=== PATIENT | female | born 1955 | race Caucasian/White ===

== ENCOUNTER → 2023-07-22 06:21 | Day surgery (SDC) | payer MEDICARE, OTHER, SELFPAY | LOC: GI 06:21 | PROVIDERS: ATTENDING PHYSICIAN Surgery | DX: Z12.11 Encounter for screening for malignant neoplasm of colon (principal); K63.5 Polyp of colon; K57.30 Diverticulosis of large intestine without perforation or abscess without bleeding | CPT/HCPCS: 45380; 88305 ==

== ENCOUNTER 2023-07-23 06:03 | Inpatient (IN) | payer MEDICARE, OTHER, SELFPAY ==
[2023-07-17 09:36] VITALS: BMI 33.3
[2023-07-17 10:30] LABS: INR 1.02; PT 13.2 Sec (11.4-14.6)
[2023-07-17 10:31] LABS: % Basophils 0.2 % (0-2); % Eosinophils 1.2 % (0-6); % Immature Granulocytes 0.7 % (0-0.5); % Lymphocytes 28.2 % (20.5-51.1); % Monocytes 6.9 % (1.7-9.3); % Neutrophils 62.8 % (42.2-75.2); APTT 25.8 Sec (23.4-35.0); Absolute Eosinophils 0.1 10^3/uL (0-0.7); Absolute Lymphocytes 1.2 10^3/uL (1.2-3.4); Absolute Monocytes 0.3 10^3/uL (0.1-0.6); Absolute Neutrophils 2.6 10^3/uL (1.4-6.5); Hematocrit 39.9 % (37.0-47.0); Hemoglobin 13.6 g/dL (12.0-16.0); Mean Corp Hgb Conc. 34.1 g/dL (33.0-37.0); Mean Corpuscular Volume 90.9 fL (81.0-99.0); Nucleated Red Blood Cells % 0 %; Platelet Count 66 10^3/uL (130-400); Red Blood Cell Count 4.39 10^6/uL (4.20-5.40); Red Cell Dist. Width 12.8 % (11.5-14.5); White Blood Cell Count 4.1 10^3/uL (4.8-10.8)
[2023-07-17 10:59] LABS: ALT (SGPT) 25 U/L (0-35); AST (SGOT) 32 U/L (14-36); Albumin 4.1 g/dl (3.5-5.0); Alkaline Phosphatase 78 U/L (38-126); Blood Urea Nitrogen 14 mg/dl (7-17); Calcium 9.5 mg/dl (8.4-10.2); Carbon Dioxide 31 mmol/L (22-30); Chloride 99 mmol/L (98-107); Estimated Creatinine Clearance 78 ml/min; Glucose 112 mg/dl (70-99); Potassium 3.9 mmol/L (3.5-5.1); Sodium 139 mmol/L (135-145); Total Bilirubin 0.7 mg/dl (0.2-1.3); eGFR > 60.00
[2023-07-17 11:06] LABS: Glycohemoglobin (HgbA1c) 6.2 % (4.0-5.6)
--- NOTE | 2023-07-21 14:50 | PTCARENOTE ---
Patients 07/17/23 Platelets 66- Aparna @ Dr. Hairston office notified
[2023-07-23] VITALS (20 sets, daily range): BP systolic 55–142; BP diastolic 53–86
[2023-07-23] MEDS: NORMOSOL-R 1000 IV (06:40)
[2023-07-23] MEDS: TYLENOL 1000 MG PO (06:52)
[2023-07-23] MEDS: NEURONTIN 600 MG PO (06:53)
[2023-07-23] MEDS: ENTEREG 12 MG PO (06:53)
--- NOTE | 2023-07-23 11:34 | W.IMMPOSTOP ---
Addendum entered and electronically signed by Eddie Self MD 07/23/23 12:02:
Patient's sister, Jazmin, updated via phone conversation.
Original Note:
Surgical Immed Post Op Note
-
Primary Surgeon: Erick Self MD
Assisting Surgeon: Satish Wood [employer] SENIOR OFFICER; DEXTER Berkowitz
Pre-op Diagnosis: sigmoid diverticulitis
Post-op Diagnosis: same
Procedure Performed: 1) robotic sigmoidectomy 2) flexible sigmoidoscopy
Anesthesia Type: general plus local
Specimen / Cultures: sigmoid colon
Estimated Blood Loss: 250 cc
Complications: no immediate
Operative Findings: oozy during operation (likely due to ITP/thrombocytopenia)--transfused a single donor unit of platelets for this
#19 Shaq in pelvis.
Vaughn, ureteral stents, ureteral ICG by Dr. Ricci of urology. R stent removed at end of case.
Will send to med surg.
[2023-07-23] MEDS: DILAUDID 0.25 MG IV ×5 (12:22→13:39)
[2023-07-23 12:47] LABS: % Basophils 0.1 % (0-2); % Immature Granulocytes 0.7 % (0-0.5); % Lymphocytes 3.9 % (20.5-51.1); % Monocytes 2.3 % (1.7-9.3); Absolute Immature Granulocytes 0.1 10^3/uL (0-0.05); Absolute Lymphocytes 0.4 10^3/uL (1.2-3.4); Absolute Monocytes 0.2 10^3/uL (0.1-0.6); Absolute Neutrophils 8.6 10^3/uL (1.4-6.5); Hematocrit 36.3 % (37.0-47.0); Hemoglobin 12.4 g/dL (12.0-16.0); Mean Corp Hgb Conc. 34.2 g/dL (33.0-37.0); Mean Corpuscular Hgb 30.6 pg (27.0-31.0); Mean Corpuscular Volume 89.6 fL (81.0-99.0); Mean Platelet Volume 12.5 fL (7.4-10.4); Nucleated Red Blood Cells % 0 %; Platelet Count 64 10^3/uL (130-400); Red Blood Cell Count 4.05 10^6/uL (4.20-5.40); Red Cell Dist. Width 12.9 % (11.5-14.5); White Blood Cell Count 9.2 10^3/uL (4.8-10.8)
[2023-07-23 12:58] LABS: Blood Urea Nitrogen 10 mg/dl (7-17); Calcium 7.4 mg/dl (8.4-10.2); Carbon Dioxide 22 mmol/L (22-30); Chloride 104 mmol/L (98-107); Estimated Creatinine Clearance 78 ml/min; Glucose 156 mg/dl (70-99); Magnesium 2.1 mg/dl (1.6-2.3); Potassium 3.6 mmol/L (3.5-5.1); Sodium 135 mmol/L (135-145); eGFR > 60.00
[2023-07-23] MEDS: D5LR 1000 IV (13:45)
--- NOTE | 2023-07-23 15:40 | PTCARENOTE ---
Pt received from the PACU via bed. Transport was w/o incident. Pt is AAOx3, HRR, lungs are clear, resp. are easy. VSS, Pt is afebrile. Pt with 4 Lap sites and one transverse inc. low abd, well approximated with dermabond. no drainage noted. Pt c/o
pain and mild nausea. Pt medicated as ordered for pain and nausea. Pt instructed on plan of care, Pt and family voiced understanding of instructions. Call boss is within reach.
[2023-07-23] MEDS: MORPHINE SULFATE 4 MG IV ×2 (16:19→21:02)
[2023-07-23] MEDS: ZOFRAN 4 MG IV (16:19)
[2023-07-23] MEDS: NEURONTIN 300 MG PO ×2 (16:20→23:06)
[2023-07-23] MEDS: TYLENOL 650 MG PO ×2 (16:20→20:55)
[2023-07-23] MEDS: FLUSH (NSS) 2 FLUSH IV (21:03)
[2023-07-23] MEDS: PROZAC 10 MG PO (23:06)
[2023-07-23] MEDS: SYNTHROID 50 MCG PO (23:06)
[2023-07-24] MEDS: D5LR 1000 IV ×3 (00:23→18:04)
[2023-07-24] MEDS: TYLENOL 650 MG PO ×6 (00:24→20:08)
[2023-07-24 03:15] VITALS: BP 104/55
[2023-07-24] MEDS: MORPHINE SULFATE 4 MG IV (04:30)
[2023-07-24] MEDS: FLUSH (NSS) 2 FLUSH IV (04:31)
[2023-07-24 05:45] VITALS: BMI 32.9
[2023-07-24 06:00] VITALS: BMI 33.1
[2023-07-24 06:34] LABS: % Basophils 0.1 % (0-2); % Immature Granulocytes 0.2 % (0-0.5); % Lymphocytes 6.1 % (20.5-51.1); % Monocytes 8.1 % (1.7-9.3); % Neutrophils 85.5 % (42.2-75.2); Absolute Lymphocytes 0.5 10^3/uL (1.2-3.4); Absolute Monocytes 0.7 10^3/uL (0.1-0.6); Absolute Neutrophils 7.3 10^3/uL (1.4-6.5); Hematocrit 33.1 % (37.0-47.0); Hemoglobin 11.2 g/dL (12.0-16.0); Mean Corp Hgb Conc. 33.8 g/dL (33.0-37.0); Mean Corpuscular Hgb 30.7 pg (27.0-31.0); Mean Corpuscular Volume 90.7 fL (81.0-99.0); Mean Platelet Volume 13.7 fL (7.4-10.4); Nucleated Red Blood Cells % 0 %; Platelet Count 67 10^3/uL (130-400); Red Blood Cell Count 3.65 10^6/uL (4.20-5.40); White Blood Cell Count 8.5 10^3/uL (4.8-10.8)
[2023-07-24 06:58] LABS: Blood Urea Nitrogen 8 mg/dl (7-17); Calcium 7.9 mg/dl (8.4-10.2); Carbon Dioxide 28 mmol/L (22-30); Chloride 101 mmol/L (98-107); Estimated Creatinine Clearance 68 ml/min; Glucose 158 mg/dl (70-99); Magnesium 2.3 mg/dl (1.6-2.3); Potassium 3.7 mmol/L (3.5-5.1); Sodium 138 mmol/L (135-145); eGFR > 60.00
[2023-07-24 07:10] VITALS: BP 100/53
[2023-07-24 07:45] LABS: Hepatitis C Antibody Negative (Negative)
--- NOTE | 2023-07-24 08:37 | W.PN.CRS1 ---
Today's Communication / Plan
-
Clears
Lovenox
DC Vaughn, stent removed
Change morphine to Dilaudid
Assessment/Plan
-
POD#1 robotic sigmoidectomy/flexible sigmoidoscopy
1. Vital signs are normal.
2. Hemoglobin is 11.2. Platelet is 67 which within her normal range. Monitor.
3. Stent removed at bedside. Urine output adequate. DC Vaughn.
4. Clear liquid diet.
5. Out of bed as tolerated.
6. Continue EDWIN drain until discharge.
7. Pain control: Tylenol 600 every 4 hours while awake, will change morphine IV as needed to Dilaudid IV as needed.
8. OR pathology pending.
9. Will start Lovenox today for DVT prophylaxis. Teds and SCDs in place.
Subjective Data
Procedure
07/23/2023-1) robotic sigmoidectomy 2) flexible sigmoidoscopy
Subjective Data
Date of Service: July 24, 2023
Patient states she has a lot of pain. She has flatus but no bowel movements. She is having some scant bloody discharge from her rectal area. She has no nausea or vomiting.
Objective Data
-
Vital Signs
Temp Pulse Resp BP Pulse Ox
97.8 F 80 17 100/53 93
07/24/23 07:10 07/24/23 07:10 07/24/23 07:10 07/24/23 07:10 07/24/23 07:10
Intake & Output
07/23/23 07/24/23 07/25/23
06:59 06:59 06:59
Intake Total 1820 / 1820
Output Total 2160 / 2160
Balance -340 / -340
Intake:
Oral fluids 120 / 120
IV fluids (Total) 500 / 500
Normosol 500 / 500
IV piggybacks 1200 / 1200
Output:
Drain Output (Total) 110 / 110
Right Middle Jonathan-Bhatt A 110 / 110
Urine, Vaughn 2049
Lab Results
07/24/23 04:23
07/24/23 04:23
Physical Exam
-
General: No Acute Distress and AOx3
Abdomen: Soft, Non Distended and Tender (Around incision sites.)
Skin: Warm and Dry
Incision: Clear, Dry, Intact
[2023-07-24] MEDS: DILAUDID 0.5 MG IV ×2 (09:25→15:15)
[2023-07-24] MEDS: ENTEREG 12 MG PO ×2 (09:26→20:08)
[2023-07-24] MEDS: PROTONIX 40 MG PO (09:26)
[2023-07-24] MEDS: NEURONTIN 300 MG PO ×3 (09:26→21:46)
--- NOTE | 2023-07-24 10:27 | CM ---
Chart reviewed. Spoke with pt at bedside
POD 1 -Robotic sigmoidectomy with bilateral ureteral stents
Pt lives in basement apartment within daughter's home- bedroom/bathroom/kitchen on one floor
Daughter lives in home
Independent, driving, cooking prior to hospitalization
DME - rolling walker
PCP - Dr Schrader
Pharm - [facility]
Will have ride at d/c
CM following for d/c needs
Plan - Anticipate home when medically stable - needs tbd
[2023-07-24 11:18] VITALS: BP 112/58
[2023-07-24 15:31] VITALS: BP 105/62
[2023-07-24] MEDS: LOVENOX 40 MG SC (17:56)
[2023-07-24] MEDS: DILAUDID 1 MG IV (20:08)
[2023-07-24] MEDS: PROZAC 10 MG PO (21:46)
[2023-07-24] MEDS: SYNTHROID 50 MCG PO (21:46)
[2023-07-24 22:39] VITALS: BP 102/49
[2023-07-25] MEDS: TYLENOL PO
[2023-07-25] MEDS: TYLENOL 650 MG PO ×5 (04:32→20:20)
[2023-07-25] MEDS: DILAUDID 1 MG IV ×2 (04:32→08:52)
[2023-07-25] MEDS: D5LR 1000 IV ×2 (04:35→13:18)
[2023-07-25 06:00] VITALS: BMI 33.1
[2023-07-25 07:14] LABS: % Basophils 0.3 % (0-2); % Eosinophils 3.2 % (0-6); % Immature Granulocytes 0.4 % (0-0.5); % Lymphocytes 14.8 % (20.5-51.1); % Monocytes 6.5 % (1.7-9.3); % Neutrophils 74.8 % (42.2-75.2); Absolute Eosinophils 0.2 10^3/uL (0-0.7); Absolute Lymphocytes 1.1 10^3/uL (1.2-3.4); Absolute Monocytes 0.5 10^3/uL (0.1-0.6); Absolute Neutrophils 5.6 10^3/uL (1.4-6.5); Hemoglobin 10.8 g/dL (12.0-16.0); Mean Corp Hgb Conc. 32.7 g/dL (33.0-37.0); Mean Corpuscular Hgb 30.1 pg (27.0-31.0); Mean Corpuscular Volume 91.9 fL (81.0-99.0); Mean Platelet Volume 13.4 fL (7.4-10.4); Nucleated Red Blood Cells % 0 %; Platelet Count 67 10^3/uL (130-400); Red Blood Cell Count 3.59 10^6/uL (4.20-5.40); Red Cell Dist. Width 13.2 % (11.5-14.5); White Blood Cell Count 7.4 10^3/uL (4.8-10.8)
[2023-07-25 07:21] LABS: Blood Urea Nitrogen 4 mg/dl (7-17); Carbon Dioxide 28 mmol/L (22-30); Chloride 104 mmol/L (98-107); Estimated Creatinine Clearance 90 ml/min; Glucose 124 mg/dl (70-99); Potassium 3.5 mmol/L (3.5-5.1); Sodium 138 mmol/L (135-145); eGFR > 60.00
[2023-07-25 07:45] VITALS: BP 92/62
[2023-07-25] MEDS: NEURONTIN 300 MG PO ×3 (08:49→21:23)
[2023-07-25] MEDS: ENTEREG PO (08:49)
[2023-07-25] MEDS: PROTONIX 40 MG PO (08:49)
--- NOTE | 2023-07-25 10:51 | W.PN.GS2 ---
Addendum entered and electronically signed by Shawn Lawson MD 07/25/23 11:04:
Patient seen and examined with nurse practitioner.
Passing flatus and loose stools. Postop incisional pain controlled. No nausea. Tolerating clears.
AFVSS
ABD: Soft, nondistended, mild tenderness. Incision sites with glue dressings.
EDWIN with light serosanguineous fluid in bulb
A/P: POD #2 RAL sigmoidectomy
Full liquid diet with supplements; probable low residue tomorrow a.m.
Stop Entereg
EDWIN will be removed upon discharge
Original Note:
Today's Communication / Plan
-
FLD
OOB/Ambulate
Assessment / Plan
-
67-year-old female with PMH of ITP and recurrent diverticulitis
POD #2 robotic sigmoidectomy with bilateral ureteral stent placement by urology
Stents out and marquez now out, Voiding.
Passing flatus/stools
AFVSS
Labs stable
� Advance to full liquids with Ensure
� Pain control: Will switch to IV Dilaudid as needed, continue Tylenol and Entereg
� Analgesics with scheduled tylenol and prn oxycodone/dilaudid. Hold NSAIDS given thrombocytopenia
� DVT ppx with SCD's, lovenox qpm
� OOB/IS
- D/C entereg
- Continue IVF
- EDWIN drain until d/c
Subjective Data
-
Date of Service: July 25, 2023
Patient seen and examined at bedside with Dr. Lawson. Minimal nausea but no vomiting. Passing stools and flatus. Reports Diarrhea. Pain/soreness to abd. Voiding since marquez catheter removal. Declined heparin sq last night d/t bleeding at IV site.
Objective Data
-
Intake and Output
07/24/23 07/25/23 07/26/23
06:59 06:59 06:59
Intake Total 1820 / 1820 2340 / 2340
Output Total 2160 / 2160 2185 / 2185 20 / 20
Balance -340 / -340 155 / 155 -20 / -20
Intake:
Oral fluids 120 / 120 1140 / 1140
IV fluids (Total) 500 / 500 1200 / 1200
Normosol 500 / 500
IV piggybacks 1200 / 1200
Output:
Drain Output (Total) 110 / 110 85 / 85 20 / 20
Right Middle Jonathan-Bhatt A 110 / 110 85 / 85 20 / 20
Urine, Marquez 2049 / 2049 650 / 650
Urine, Voided 1450 / 1450
Vital Signs
Temp Pulse Resp BP Pulse Ox
98.6 F 92 16 92/62 97
07/25/23 07:45 07/25/23 07:45 07/25/23 07:45 07/25/23 07:45 07/25/23 07:45
Lab Results
07/25/23 05:47
07/25/23 05:47
Calcium 8.0 mg/dl (8.4-10.2) L 07/25/23 05:47
Magnesium 2.3 mg/dl (1.6-2.3) 07/24/23 04:23
Total Bilirubin 0.7 mg/dl (0.2-1.3) 07/17/23 09:13
AST 32 U/L (14-36) 07/17/23 09:13
ALT 25 U/L (0-35) 07/17/23 09:13
Alkaline Phosphatase 78 U/L (38-126) 07/17/23 09:13
Total Protein 7.0 g/dl (6.3-8.2) 07/17/23 09:13
Albumin 4.1 g/dl (3.5-5.0) 07/17/23 09:13
Physical Exam
-
NAD
ABD soft, expected tenderness, chlorine cell tender, minimal distention
Incisions clear,dry, intact, EDWIN with SSF
[2023-07-25 15:30] VITALS: BP 104/63
[2023-07-25] MEDS: ZOFRAN 4 MG IV (16:28)
[2023-07-25] MEDS: DILAUDID 0.5 MG IV ×2 (16:31→21:30)
[2023-07-25] MEDS: LOVENOX 40 MG SC (17:54)
[2023-07-25] MEDS: PROZAC 10 MG PO (21:23)
[2023-07-25] MEDS: SYNTHROID 50 MCG PO (21:23)
[2023-07-25 23:20] VITALS: BP 103/65
[2023-07-26] MEDS: TYLENOL PO ×2 (00:35→04:44)
[2023-07-26] MEDS: D5LR 1000 IV (02:22)
[2023-07-26 06:00] VITALS: BMI 33.1
[2023-07-26 06:10] LABS: Hematocrit 31.7 % (37.0-47.0); Hemoglobin 10.5 g/dL (12.0-16.0); Mean Corp Hgb Conc. 33.1 g/dL (33.0-37.0); Mean Corpuscular Hgb 30.2 pg (27.0-31.0); Mean Corpuscular Volume 91.1 fL (81.0-99.0); Mean Platelet Volume 12.9 fL (7.4-10.4); Platelet Count 77 10^3/uL (130-400); Red Blood Cell Count 3.48 10^6/uL (4.20-5.40); Red Cell Dist. Width 13.2 % (11.5-14.5); White Blood Cell Count 6.3 10^3/uL (4.8-10.8)
[2023-07-26 06:22] LABS: Blood Urea Nitrogen 4 mg/dl (7-17); Carbon Dioxide 29 mmol/L (22-30); Chloride 105 mmol/L (98-107); Estimated Creatinine Clearance 77 ml/min; Glucose 127 mg/dl (70-99); Potassium 3.4 mmol/L (3.5-5.1); Sodium 136 mmol/L (135-145); eGFR > 60.00
[2023-07-26 07:17] VITALS: BP 117/70
[2023-07-26] MEDS: PROTONIX 40 MG PO (07:55)
[2023-07-26] MEDS: TYLENOL 650 MG PO ×5 (07:55→23:12)
[2023-07-26] MEDS: DILAUDID 0.5 MG IV (07:55)
[2023-07-26] MEDS: NEURONTIN 300 MG PO ×3 (07:55→21:33)
[2023-07-26] MEDS: ZOFRAN 4 MG IV (07:58)
[2023-07-26] MEDS: KCL 270 MEQ IV (08:59)
--- NOTE | 2023-07-26 09:46 | W.PN.GS2 ---
Addendum entered and electronically signed by Shawn Lawson MD 07/26/23 10:02:
pt seen and examined with DRY ICE MAKER
complains of incisional pain but fully relieved after pain meds
reena PO
+fl and BMs
AFVSS
ABD: soft, ND, mild TTP no R/R/G
incisions with glue
EDWIN with light SSF
A/P: POD#3
LR diet as tolerated today
pain control
follow EDWIN
Original Note:
Today's Communication / Plan
-
LRD as tolerated
Pain management
Assessment / Plan
-
67-year-old female with PMH of ITP and recurrent diverticulitis
POD #3 robotic sigmoidectomy with bilateral ureteral stent placement by urology
Stents out and marquez now out, Voiding.
Passing flatus/stools
AFVSS
Labs stable
� Advance to low residue diet as tolerated
� Analgesics with scheduled tylenol and prn oxycodone/dilaudid. Hold NSAIDS given thrombocytopenia
� DVT ppx with SCD's, lovenox qpm
� OOB/IS
- D/C IVF
- EDWIN drain until d/c
Subjective Data
-
Date of Service: July 26, 2023
Patient seen and examined at bedside with Dr. Lawson. Notes that when she has pain it is horrible but the medication relieves it very well. She had some nausea earlier this morning. Denies vomiting. Passing flatus and stools and overall tolerating
diet although sticking to eating small amounts.
Objective Data
-
Intake and Output
07/25/23 07/26/23 07/27/23
06:59 06:59 06:59
Intake Total 2340 / 2340 2099 / 2099
Output Total 2185 / 2185 135 / 135
Balance 155 / 155 1965 / 1965
Intake:
Oral fluids 1140 / 1140 1140 / 1140
IV fluids (Total) 1200 / 1200 960 / 960
Output:
Drain Output (Total) 135 / 135
Right Middle Jonathan-Bhatt A 135 / 135
Urine, Marquez 650 / 650
Urine, Voided 1450 / 1450
Other:
Number of approximated MODERATE 4
amounts of urine
Number of unmeasured liquid
stools
Rectum 4
Vital Signs
Temp Pulse Resp BP Pulse Ox
98.5 F 112 16 117/70 97
07/26/23 07:17 07/26/23 07:17 07/26/23 07:17 07/26/23 07:17 07/26/23 07:17
Lab Results
07/26/23 05:23
07/26/23 05:23
Calcium 8.0 mg/dl (8.4-10.2) L 07/26/23 05:23
Magnesium 2.3 mg/dl (1.6-2.3) 07/24/23 04:23
Total Bilirubin 0.7 mg/dl (0.2-1.3) 07/17/23 09:13
AST 32 U/L (14-36) 07/17/23 09:13
ALT 25 U/L (0-35) 07/17/23 09:13
Alkaline Phosphatase 78 U/L (38-126) 07/17/23 09:13
Total Protein 7.0 g/dl (6.3-8.2) 07/17/23 09:13
Albumin 4.1 g/dl (3.5-5.0) 07/17/23 09:13
Physical Exam
-
NAD
ABD soft, expected tenderness, swimming pool attendant, minimal distention
Incisions clear,dry, intact glue. Some bruising to lower abdominal incision, EDWIN with SSF
[2023-07-26 14:51] VITALS: BP 105/56
[2023-07-26] MEDS: DILAUDID IV (18:10)
[2023-07-26] MEDS: DILAUDID 1 MG IV (18:14)
[2023-07-26] MEDS: LOVENOX 40 MG SC (18:40)
[2023-07-26] MEDS: PROZAC 10 MG PO (21:33)
[2023-07-26] MEDS: SYNTHROID 50 MCG PO (21:33)
[2023-07-27 00:11] VITALS: BP 130/84
[2023-07-27] MEDS: TYLENOL 650 MG PO ×2 (05:14→08:32)
[2023-07-27 06:24] LABS: Hematocrit 33.5 % (37.0-47.0); Hemoglobin 11.1 g/dL (12.0-16.0); Mean Corp Hgb Conc. 33.1 g/dL (33.0-37.0); Mean Corpuscular Hgb 30.5 pg (27.0-31.0); Mean Platelet Volume 13.1 fL (7.4-10.4); Platelet Count 98 10^3/uL (130-400); Red Blood Cell Count 3.64 10^6/uL (4.20-5.40); White Blood Cell Count 4.9 10^3/uL (4.8-10.8)
[2023-07-27 06:57] LABS: Blood Urea Nitrogen 10 mg/dl (7-17); Calcium 8.4 mg/dl (8.4-10.2); Carbon Dioxide 28 mmol/L (22-30); Chloride 100 mmol/L (98-107); Estimated Creatinine Clearance 77 ml/min; Glucose 109 mg/dl (70-99); Magnesium 1.8 mg/dl (1.6-2.3); Potassium 3.6 mmol/L (3.5-5.1); Sodium 135 mmol/L (135-145); eGFR > 60.00
[2023-07-27 07:03] VITALS: BP 116/67
[2023-07-27] MEDS: PROTONIX 40 MG PO (08:32)
[2023-07-27] MEDS: NEURONTIN 300 MG PO (08:32)
--- NOTE | 2023-07-27 08:51 | W.PN.CRS1 ---
Today's Communication / Plan
-
EDWIN drain removed
Discharge
Assessment/Plan
-
POD#4 robotic sigmoidectomy/flexible sigmoidoscopy
1.� Vital signs are normal.
2.� Hemoglobin is 11.1.� Platelet is 98 which is within her normal range.
3.� EDWIN drain removed at bedside.
4.� Low residue diet.
5.� Out of bed as tolerated.
6.� OR pathology pending.
7.� Lovenox for DVT prophylaxis.� Teds and SCDs in place.
8. Okay for discharge today. Follow-up with Dr. Self in 2 weeks. OR pathology pending. All discharge instructions discussed with patient including medication tibials and follow-up. All questions answered.
Subjective Data
Procedure
07/23/2023-1) robotic sigmoidectomy 2) flexible sigmoidoscopy
Subjective Data
Date of Service: July 27, 2023
Right patient states she has some pain but is controlled. It is around the drain site. She is having bowel movements. She is tolerating a low residue diet. She has been out of bed.
Objective Data
-
Vital Signs
Temp Pulse Resp BP Pulse Ox
98.1 F 82 18 116/67 96
07/27/23 07:03 07/27/23 07:03 07/27/23 07:03 07/27/23 07:03 07/27/23 07:03
Intake & Output
07/26/23 07/27/23 07/28/23
06:59 06:59 06:59
Intake Total 2099 / 2099 1400 / 1400
Output Total 135 / 135 70 / 70
Balance 1967 / 1964 1330 / 1330
Intake:
Oral fluids 1140 / 1140 1400 / 1400
IV fluids (Total) 960 / 960
Output:
Drain Output (Total) 135 / 135 70 / 70
Right Middle Jonathan-Bhatt A 135 / 135 70 / 70
Other:
Number of approximated SMALL 5
amounts of urine
Number of approximated MODERATE 4 2
amounts of urine
Number of approximated LARGE 1
amounts of urine
Number of unmeasured liquid
stools
Rectum 4
Lab Results
07/27/23 05:30
07/27/23 05:30
Physical Exam
-
General: No Acute Distress and AOx3
Abdomen: Soft, Non Distended and Tender (around drain site)
Skin: Warm and Dry
Incision: Clear, Dry, Intact
--- NOTE | 2023-07-27 09:06 | W.DS.TRANS ---
DC Summary - Adapted Physical Education Specialist
-
Discharge Instructions:
Discharge Diagnosis/Procedures robotic sigmoidectomy
Diet Low Residue
Activity No strenuous activity
Additional Activity No lifting over 10 pounds
Driving Restrictions Do not drive while taking narcotics
Bathing Restrictions OK to Shower
Wound Care Allow glue to naturally fall off. Do not pick
at incisions.
Instructions: Low Fiber Diet
Stand-Alone Forms:
Changes to Home Medications: Yes
Discharge Medications:
DC Medications w/original date entered in [facility]
fluoxetine 10 mg capsule 10 mg PO HS Mental Health/Anxiety 05/25/21
levothyroxine 50 mcg tablet 50 mcg PO HS Thyroid 05/25/21
omeprazole 40 mg capsule,delayed release 40 mg PO HS Gastrointestinal issue 05/25/21
acetaminophen 500 mg tablet (Tylenol Extra Strength) 1,000 mg PO Q6HPRN PRN mild pain 04/21/23
gabapentin 300 mg capsule 300 mg PO TID Pain 04/21/23
magnesium oxide 500 mg PO DAILY Supplement 07/21/23
oxycodone 5 mg tablet 5 mg PO Q6H PRN Pain #20 tabs 07/27/23
Home Medication Changes
oxycodone 5 mg tablet 5 mg PO Q6H PRN Pain #20 tabs 07/27/23
Pending Results: Yes
Additional Pending Results:
OR pathology
--- NOTE | 2023-07-27 11:15 | PTCARENOTE ---
Discharge instructions read aloud by pt. IV removed. Pt picked up by her brother at the main lobby.
--- NOTE | 2023-07-27 12:17 | CM ---
Patient has been medically cleared for discharge to home with no additional skilled services. Son-in-law will transport home.
== END 2023-07-27 11:14 | disposition home or self-care (01) | DRG 330 ==
LOC: 2 SOUTH 06:03
PROVIDERS: Physician Assistant; Registered Nurse; Specialist; ADMITTING PHYSICIAN Surgery; FAMILY PHYSICIAN Nurse Practitioner Family
PROC: 8E0W4CZ Robotic Assisted Procedure of Trunk Region, Percutaneous Endoscopic Approach (ICD-10-PCS; 2023-07-23)
PROC: 0T788DZ Dilation of Bilateral Ureters with Intraluminal Device, Via Natural or Artificial Opening Endoscopic (ICD-10-PCS; 2023-07-23)
PROC: 0DTN4ZZ Resection of Sigmoid Colon, Percutaneous Endoscopic Approach (ICD-10-PCS; 2023-07-23)
DX: K57.32 Diverticulitis of large intestine without perforation or abscess without bleeding (principal); D69.3 Immune thrombocytopenic purpura; Z86.2 Personal history of diseases of the blood and blood-forming organs and certain disorders involving the immune mechanism; N81.10 Cystocele, unspecified
CPT/HCPCS: 88305; 88307; 36415; 80048; 80053; 83036; 83735; 85025; 85027; 85610; 85730; 86803; 86850; 86900; 86901; 86920; 93005; J1335; P9073

== ENCOUNTER 2023-08-16 12:19 | Emergency (ER) | payer MEDICARE, OTHER, SELFPAY ==
[2023-08-16 12:20] VITALS: BP 113/82; BMI 33.0
--- NOTE | 2023-08-16 12:53 | ED.GENMED ---
History of Present Illness
General
Chief Complaint: Weakness
Source: patient
Exam Limitations: none
Time Seen by Provider: 08/16/23 12:36
Nursing documentation reviewed up to this point in time: agreed with
Travel History
Have you had any contact with someone who has COVID-19?: No
Do you have any symptoms of coronavirus? Fever > 100 degrees, chills, cough, shortness of breath, sore throat, loss of taste or smell, muscle aches, or headache?: No
History of Present Illness
History of Present Illness:
Patient to ED with complaint of fatigue, nausea. States she had a bowel resection 07/23 for hx diverticulitis. No abscess or perforation identified. States she felt well for the next 2 weeks. Shortly after that time period her symptoms began.
Denies fever but reports chills. No vomiting or diarrhea. Appetite is poor. Reports sore throat and right painful ant cervical lymph node. Brought to ED by daughter for eval.
Past History
Past History
ED Past Medical History: GERD, Hypothyroidism and Other (Diverticulitis, ITP, partial small bowel obstruction related to right inguinal canal hernia August 2021)
ED Past Surgical History: Appendectomy, Brain (craniotomy (benign tumor)), and Orthopedic
Social History
Tobacco: Former smoker
Alcohol: None
Drug: None
Personal:
Living: with family
Employment: Employed
Family History
Family History: Other (Noncontributory)
Review of Systems
Review of Systems
Allergies reviewed?: Yes
All Other Systems: ROS reviewed and negative except as documented in HPI and ROS
Constitutional: Reports fatigue
EENT: Reports sore throat and other (painful right ant. cervical node)
Respiratory: Reports no symptoms
Cardiac: Reports no symptoms
ABD/GI: Reports nausea and anorexia
: Reports no symptoms
Musculoskeletal: Reports no symptoms
Skin: Reports no symptoms
Neurological: Reports weakness
Psychiatric: Reports no symptoms
Phy Exam
General Physical Exam
General Presentation: well appearing
General age: appears stated age
General Skin: warm
General Habitus: normal
General Mental: alert
ENT Exam
ENT Exam: lymphnodes (enlarged painful firm right ant. cervical lymph node), pharyngeal erythema and swallowing well
Cardiovascular Exam
Cardiovascular Exam: regular rate/rhythm and no edema
Pulmonary Exam
Pulmonary Exam: lungs clear and no respiratory distress
Gastrointestinal Exam
Gastrointestinal Exam: normal bowel sounds, non tender, soft, no organomegaly, no pulsatile mass, non distended and no cva tenderness
Musculoskeletal Exam
Musculoskeletal Exam: full ROM and neuro vasc intact
Skin Exam
Skin Exam: normal color, warm/dry and no rash
Psychiatric Exam
Psychiatric Exam: normal mood/affect
Course
Orders/Labs/Results
Orders:
Orders
08/16/23 12:51
Ondansetron Injectable [Zofran] 4 mg IV NOW STA
08/16/23 12:52
0.9% Sodium Chloride 1000 ml [Nss] 1,000 ml IV BOLUS
08/16/23 13:04
COVID-19 Antigen Urgent
Source: Nasal Swab
Complete Blood Count/With Diff Urgent
Comprehensive Metabolic Panel Urgent
Lipase Urgent
Influenza A+B Rapid Molecular Urgent
MEJIA Source: Nasal Swab
Specimen Description:
Rapid Strep Group A Urgent
MEJIA Source: Throat/Pharynx
Specimen Description:
Date Specimen was Collected: 08/16/23
Time Specimen was Collected: 13:02
08/16/23 13:55
Potassium Chloride [KCl] 40 meq PO NOW STA
08/16/23 14:30
Urinalysis Reflex To Culture Urgent
Date Specimen was Collected: 08/16/23
Time Specimen was Collected: 13:02
Urine Microscopic Reflex Cult Urgent
Urine Culture Urgent
MEJIA Source: U
Specimen Description:
Date Specimen was Collected: 08/16/23
Time Specimen was Collected: 13:02
08/16/23 15:21
Amoxicillin [Amoxil] 500 mg PO NOW STA
Abnormal Lab Results
08/16/23 08/16/23
13:04 14:30
RBC 4.15 L 10^6/uL
(4.20-5.40)
Hct 36.0 L %
(37.0-47.0)
Plt Count 121 L 10^3/uL
(130-400)
MPV 12.5 H fL
(7.4-10.4)
Abs Immat Gran (auto) 0.5 H 10^3/uL
(0-0.05)
Absolute Monos (auto) 0.9 H 10^3/uL
(0.1-0.6)
Immature Gran % 5.5 H %
(0-0.5)
Lymphocytes % 15.8 L %
(20.5-51.1)
Monocytes % 9.9 H %
(1.7-9.3)
Potassium 3.0 L mmol/L
(3.5-5.1)
Glucose 119 H mg/dl
(70-99)
Calcium 8.3 L mg/dl
(8.4-10.2)
Urine Ketones Trace A
(Negative)
Leukocyte Esterase Rfl 1+ A
(Negative)
Urine WBC (Reflex) 50-60 A /HPF
(0-5)
Urine Bacteria (Reflex) Few A
(Negative)
08/16/23 13:04
08/16/23 13:04
Vital Signs
Initial and Last Documented VS:
Initial Vital Signs
Temp Pulse Resp BP Pulse Ox
98 F 103 20 113/82 98
08/16/23 12:20 08/16/23 12:20 08/16/23 12:20 08/16/23 12:20 08/16/23 12:20
Last Documented Vital Signs
Temp Pulse Resp BP Pulse Ox
98 F 94 17 112/67 93
08/16/23 12:20 08/16/23 15:15 08/16/23 15:15 08/16/23 15:00 08/16/23 15:15
*Pulse Oximetry
Patient hypoxic: no
*Critical Care Note
Total Time (30-74mins, 75-104mins- exclusive of procedures): Not Applicable
Update Note
Update Note:
Improved after IVF and zofran. Strep pos. Amoxicillin started in dept. WIll discharge home. Given rx for zofran PRN. WIll follow up with PCP this week. Given instructions on s/s to return to ED and she is agreeable to plan.
ED Attending Note
-
Portions of this chart may have been created with voice recognition software.� Occasional wrong word or��sound alike� substitutions may have occurred due to the inherent limitations of voice recognition software.
Discharge Plan
Departure
Patient Disposition: Home (Routine Discharge)
Date of Disposition: 08/16/23
Time of Disposition: 14:51
Patient with high blood pressure during this ER visit?: No
Condition: Good
Covid-19: Not Applicable
Discharge Problem:
Weakness, Nausea, Acute streptococcal pharyngitis
Instructions: Strep Throat (DC), Generalized Weakness (DC), Lymphadenitis (DC)
Prescriptions:
New
ondansetron 4 mg tablet,disintegrating
4 mg PO Q8H PRN (Reason: nausea and vomiting) 4 Days Qty: 12 0RF
amoxicillin 500 mg capsule
500 mg PO Q12H Qty: 20 0RF
No Action
omeprazole 40 MG capsule,delayed release(DR/EC)
40 mg PO .DINNER
levothyroxine 50 MCG tablet
50 mcg PO HS
fluoxetine 10 MG capsule
10 mg PO HS
acetaminophen [Tylenol Extra Strength] 500 mg Tablet
1,000 mg PO Q6HPRN PRN (Reason: mild pain)
gabapentin 300 mg Capsule
300 mg PO BID
magnesium oxide 500 mg tablet
500 mg PO DAILY
Referrals:
Navdeep Moyer MD [Family Provider] - Follow up in 2-3 days
Interventions
Interventions:
*Risk Screen - Suicide Last Done: 08/16/23 12:20
*General Assessment Last Done: 08/16/23 12:57
*Neglect/Abuse Screening Last Done: 08/16/23 12:57
ED- Fall Risk Assessment Last Done: 08/16/23 12:58
*ED COVID-19 Vaccine History Last Done: 08/16/23 12:20
*Nursing Disposition Last Done: 08/16/23 15:32
ED- Cardiac Assessment Last Done: 08/16/23 13:00
ED- Neurological Assessment Last Done: 08/16/23 13:00
ED- Pulmonary Assessment Last Done: 08/16/23 13:00
Discharge Date and Time
Discharge Date/Time: 08/16/23 15:35
[2023-08-16 12:57] VITALS: BP 118/75
[2023-08-16] MEDS: NSS 1000 IV (13:18)
[2023-08-16] MEDS: ZOFRAN 4 MG IV (13:19)
[2023-08-16 13:30] LABS: % Basophils 0.3 % (0-2); % Eosinophils 0.6 % (0-6); % Immature Granulocytes 5.5 % (0-0.5); % Lymphocytes 15.8 % (20.5-51.1); % Monocytes 9.9 % (1.7-9.3); % Neutrophils 67.9 % (42.2-75.2); Absolute Eosinophils 0.1 10^3/uL (0-0.7); Absolute Immature Granulocytes 0.5 10^3/uL (0-0.05); Absolute Lymphocytes 1.5 10^3/uL (1.2-3.4); Absolute Monocytes 0.9 10^3/uL (0.1-0.6); Absolute Neutrophils 6.3 10^3/uL (1.4-6.5); Hemoglobin 12.2 g/dL (12.0-16.0); Mean Corp Hgb Conc. 33.9 g/dL (33.0-37.0); Mean Corpuscular Hgb 29.4 pg (27.0-31.0); Mean Corpuscular Volume 86.7 fL (81.0-99.0); Mean Platelet Volume 12.5 fL (7.4-10.4); Nucleated Red Blood Cells % 0 %; Platelet Count 121 10^3/uL (130-400); Red Blood Cell Count 4.15 10^6/uL (4.20-5.40); Red Cell Dist. Width 13.1 % (11.5-14.5); White Blood Cell Count 9.3 10^3/uL (4.8-10.8)
[2023-08-16 13:36] LABS: COVID-19 Antigen Negative (Negative)
[2023-08-16 13:43] LABS: ALT (SGPT) 26 U/L (0-35); AST (SGOT) 28 U/L (14-36); Albumin 4.3 g/dl (3.5-5.0); Alkaline Phosphatase 97 U/L (38-126); Blood Urea Nitrogen 11 mg/dl (7-17); Calcium 8.3 mg/dl (8.4-10.2); Carbon Dioxide 28 mmol/L (22-30); Chloride 100 mmol/L (98-107); Estimated Creatinine Clearance 68 ml/min; Glucose 119 mg/dl (70-99); Lipase 71 U/L (23-300); Sodium 137 mmol/L (135-145); Total Bilirubin 0.9 mg/dl (0.2-1.3); Total Protein 7.4 g/dl (6.3-8.2); eGFR > 60.00
[2023-08-16 14:00] VITALS: BP 116/76
[2023-08-16 14:57] LABS: Urine Albumin Negative (Neg - Trace); Urine Bilirubin Negative (Negative); Urine Character Clear (Clear); Urine Color Yellow; Urine Glucose Negative (Negative); Urine Ketone Trace (Negative); Urine Leukocyte 1+ (Negative); Urine Nitrite Negative (Negative); Urine Occult Blood Negative (Negative); Urine Urobilinogen Negative (Neg - 1+)
[2023-08-16 15:00] VITALS: BP 112/67
[2023-08-16] MEDS: KCL 40 MEQ PO (15:12)
[2023-08-16 15:25] LABS: Urine Squamous Cell 21-25 /LPF (Few)
[2023-08-16] MEDS: AMOXIL 500 MG PO (15:25)
[2023-08-16 15:26] LABS: Urine Bacteria Few (Negative); Urine Red Blood Cell 0-2 /HPF (0-2); Urine White Cell 50-60 /HPF (0-5)
== END 2023-08-16 15:35 | disposition home or self-care (01) ==
LOC: EMR 12:19
PROVIDERS: Nurse Practitioner; EMERGENCY PHYSICIAN Emergency Medicine; FAMILY PHYSICIAN Family Medicine
DX: J02.0 Streptococcal pharyngitis (principal); R53.1 Weakness; R11.0 Nausea; Z11.52 Encounter for screening for COVID-19
CPT/HCPCS: 99284; 96374; 96361; 80053; 81003; 81015; 83690; 85025; 87070; 87086; 87147; 87502; 87811; 87880

== ENCOUNTER → 2023-10-02 13:06 | Outpatient (REF) | payer MEDICARE, OTHER, SELFPAY | LOC: RAD 13:06 | PROVIDERS: ATTENDING PHYSICIAN Physician Assistant | DX: N93.9 Abnormal uterine and vaginal bleeding, unspecified (principal); R35.0 Frequency of micturition; R10.2 Pelvic and perineal pain; N39.46 Mixed incontinence | CPT/HCPCS: 76770; 76830; 76856 ==

== ENCOUNTER → 2023-10-08 08:53 | Outpatient (REF) | payer MEDICARE, OTHER, SELFPAY ==
[2023-10-08 09:52] LABS: % Basophils 0.3 % (0-2); % Immature Granulocytes 0.5 % (0-0.5); % Lymphocytes 33.2 % (20.5-51.1); % Monocytes 10.1 % (1.7-9.3); % Neutrophils 53.9 % (42.2-75.2); Absolute Eosinophils 0.1 10^3/uL (0-0.7); Absolute Lymphocytes 1.3 10^3/uL (1.2-3.4); Absolute Monocytes 0.4 10^3/uL (0.1-0.6); Absolute Neutrophils 2.1 10^3/uL (1.4-6.5); Hematocrit 38.2 % (37.0-47.0); Hemoglobin 12.4 g/dL (12.0-16.0); Mean Corp Hgb Conc. 32.5 g/dL (33.0-37.0); Mean Corpuscular Hgb 29.1 pg (27.0-31.0); Mean Corpuscular Volume 89.7 fL (81.0-99.0); Nucleated Red Blood Cells % 0 %; Red Blood Cell Count 4.26 10^6/uL (4.20-5.40); Red Cell Dist. Width 13.5 % (11.5-14.5)
[2023-10-08 11:19] LABS: Platelet Count 71 10^3/uL (130-400)
[2023-10-08 11:34] LABS: ALT (SGPT) 33 U/L (0-35); AST (SGOT) 37 U/L (14-36); Albumin 4.4 g/dl (3.5-5.0); Alkaline Phosphatase 79 U/L (38-126); Blood Urea Nitrogen 14 mg/dl (7-17); Calcium 9.5 mg/dl (8.4-10.2); Carbon Dioxide 28 mmol/L (22-30); Chloride 103 mmol/L (98-107); Glucose 111 mg/dl (70-99); HDL Cholesterol 50 mg/dl; Iron 99 ug/dl (37-170); LDL Cholesterol, Calculated 104 mg/dl; Potassium 3.7 mmol/L (3.5-5.1); Sodium 137 mmol/L (135-145); Total Bilirubin 0.5 mg/dl (0.2-1.3); Total Cholesterol 191 mg/dl (50-199); Total Protein 7.6 g/dl (6.3-8.2); Triglyceride 188 mg/dl (10-149); Very Low Density Lipoprotein 37 mg/dl (0-30); eGFR > 60.00
[2023-10-08 12:12] LABS: TSH Reflex To Free T4 3.96 uIU/ml (0.47-4.68)
== END ==
LOC: REG 08:53
PROVIDERS: ATTENDING PHYSICIAN Physician Assistant
DX: Z01.419 Encounter for gynecological examination (general) (routine) without abnormal findings (principal); G25.81 Restless legs syndrome; K21.9 Gastro-esophageal reflux disease without esophagitis; E03.9 Hypothyroidism, unspecified; E78.00 Pure hypercholesterolemia, unspecified; N93.9 Abnormal uterine and vaginal bleeding, unspecified; R73.9 Hyperglycemia, unspecified
CPT/HCPCS: 36415; 80053; 80061; 82728; 83036; 83540; 84443; 85025

== ENCOUNTER → 2024-02-12 09:11 | Outpatient (REF) | payer MEDICARE, OTHER, SELFPAY ==
[2024-02-12 10:50] LABS: FSH 34.8 mIU/ml
[2024-02-12 11:05] LABS: Estradiol 32.4 pg/ml
== END ==
LOC: REG 09:11
PROVIDERS: ATTENDING PHYSICIAN Physician Assistant
DX: N89.8 Other specified noninflammatory disorders of vagina (principal); R63.5 Abnormal weight gain; N95.0 Postmenopausal bleeding
CPT/HCPCS: 36415; 82670; 83001; 83002

== ENCOUNTER → 2025-02-13 09:34 | Outpatient (REF) | payer MEDICARE, OTHER, SELFPAY | LOC: DHSLP 09:34 | PROVIDERS: ATTENDING PHYSICIAN Physician Assistant | DX: G47.33 Obstructive sleep apnea (adult) (pediatric) (principal) | CPT/HCPCS: 95800 ==